=== PATIENT | male | born 1995 | race Caucasian/White ===

== ENCOUNTER 2022-03-25 11:08 | Emergency (ER) | payer SELFPAY ==
[2022-03-25 11:09] VITALS: BP 156/94; PULSE 108; RESP 16; TEMP 37.2; O2SAT 98; BMI 28.0
--- NOTE | 2022-03-25 11:43 | RAD_ITS ---
STUDY: X-RAY CHEST REASON FOR EXAM: Male, 26 years old. Aspirated FB TECHNIQUE: PA and lateral views of the chest. COMPARISON: None. FINDINGS: The lungs are clear and expanded. There is no demonstrated pleural abnormality. Normal size heart. Normal mediastinum and mansi. Normal visualized pulmonary arteries. Normal visualized aortic arch and descending thoracic aorta. Normal visualized thoracic spine. Normal visualized ribs, clavicles, and shoulders. There is no demonstrated abnormality of the visualized soft tissue structures of the upper abdomen. RAD/Chest PA and Lateral IMPRESSION: Normal x-ray examination of the chest. Electronically Signed: Ole Escudero MD at 12:47 EDT ,
--- NOTE | 2022-03-25 11:43 | EX.ED.DYSGE1 ---
HPI History of Present Illness Chief Complaint: Foreign Body Informant: patient Onset/Context/Timing Onset: Hours (1) Context: Sudden Onset Timing: Continuous Quality: Discomfort Location: Left parasternal chest Current Severity: Moderate Maximum Severity: Moderate Worsened by: Breathing Relieved by: Nothing Associated Symptoms Associated Symptoms: None Narrative Narrative: Patient had a handful of blueberries that he was about to swallow when he accidentally aspirated 1. No coughing or choking, he feels like it went right down into his lung, he has discomfort in his left chest when he takes a breath that started along with this. No dyspnea. No vomiting. PFSH PFSH Medical History no medical history no medical history Home Medications hydrocodone-acetaminophen 5-325mg 5mg-325mg 1 - 2 tab PO Q4H PRN PRN Pain ##30 12/10/13 [Rx Last Taken Unknown] Allergy/AdvReac Type Severity Reaction Status Date / Time No Known Allergies Allergy Verified 03/25/22 11:10 Surgical History no surgical history Social History Smoking Status: Never smoker ROS ROS ED Constitutional Constitutional ED: Denies chills or fever(s) Eyes Eyes: Denies change in vision or diplopia ENT ENT ED: Denies rhinorrhea or sore throat Cardiovascular Cardiovascular: Reports other Details: Chest discomfort with inspiration see HPI ; Denies palpitations Respiratory/Chest Respiratory/Chest: Denies cough or dyspnea Gastrointestinal Gastrointestinal: Denies abdominal pain, diarrhea, nausea or vomiting Genitourinary Genitourinary ED: Denies dysuria or hematuria Musculoskeletal Musculoskeletal: Denies back pain or neck pain Integumentary Denies abscess or rash Neurologic Neurologic: Denies headache(s), paresthesias or weakness Psychiatric Psychiatric: Denies anxiety or suicidal thoughts EXAM Physical Exam Const Vital Signs: 03/25/22 11:09 Temperature 98.9 F Temperature Source Temporal Pulse Rate 108 H Respiratory Rate 16 Blood Pressure 156/94 H Blood Pressure Mean 114 Pulse Ox 98 Oxygen Delivery Method Room Air Positive well nourished and well developed General Appearance ED: well developed and NAD HEENT Reports moist mucous membranes normocephalic and atraumatic Eyes PERRL and EOMs intact bilaterally Neck full ROM and supple Resp normal respiratory effort and clear to auscultation bilaterally Cardio regular rate, regular rhythm and no murmurs GI non-tender and non-distended Auscultation: normoactive bowel sounds Palpation: soft Back/Spine no CVA tenderness General Back: other FROM Extremity normal to inspection General Extremety ED: Negative for edema, pulses abnormal or tenderness General Extremity: Negative for edema or pulses abnormal Neuro oriented x3, CN's II-XII intact bilaterally and no sensory deficits noted Sensorium / Orientation: awake and alert Motor Exam: strength 5/5 throughout Skin no rashes or lesions noted and no wounds MDM MDM MDM Narrative Medical decision making narrative: X-ray to my interpretation is normal, 2 views. This does not rule out the possibility of an aspirated foreign body into one of the smaller bronchials. I discussed with Dr. Pyle, he agrees that bronchoscopy is reasonable in this scenario especially given the fact that the foreign body is round and could ball-valve and cause an infection although this is a lower risk in someone who is young and healthy like this patient. I discussed at length with the patient regarding how the x-ray being negative does not rule out the possibility of a foreign body in his lung/bronchial. However, when I reevaluated him during this conversation, he states that the symptoms have resolved and he feels like it was probably just in his esophagus and he does not want anything done. Dr. Pyle spoke with him, and the patient is refusing bronchoscopy and refusing an IV. He wants to leave. He was given appropriate discharge instructions and reasons to return. Radiography Chest X-Ray - ED: 2 View, Read by ED Physician, Normal, Heart, Lungs, Mediastinum and No Acute Disease Diagnostic Testing: Clinical Impression(s) from Imaging Studies Chest X-Ray 03/25/22 11:43 IMPRESSION: Normal x-ray examination of the chest. Electronically Signed: Ole Escudero MD at 12:47 EDT , Discharge Plan Triage Chief Complaint: Foreign Body ED Provider: Reagan Tirado Dx/Rx/DC Orders Clinical Impression: Aspiration of foreign body Instructions: Dysphagia Aspiration Prescriptions: No Action hydrocodone-acetaminophen 1 TABLET tablet 1 - 2 tab PO Q4H PRN PRN (Reason: Pain) Qty: 30 0RF Primary Care Provider: Care Physician,No Primary Referrals: Bobby Pyle, DO [STAFF PHYSICIAN] - As Needed (or may return to ER if you have trouble breathing) [facility] Doctor,Out of [NON-STAFF] - Disposition Disposition: Home, Self Care
[2022-03-25 13:40] VITALS: BP 124/66; PULSE 72; RESP 15; O2SAT 98
== END 2022-03-25 13:40 | disposition home or self-care (01) ==
PROVIDERS: Emergency Provider Emergency Medicine; Visit Provider Emergency Medicine
DX: R13.19 Other dysphagia (principal)
CPT/HCPCS: 71046; 99282

== ENCOUNTER 2023-09-13 13:36 | Emergency (ER) | payer MEDICAID, SELFPAY ==
[2023-09-13 13:38] VITALS: BP 142/91; PULSE 118; RESP 20; TEMP 36.8; O2SAT 100; BMI 29.2
--- NOTE | 2023-09-13 13:49 | EDS_ITS ---
HPI History of Present Illness Chief Complaint: Wound Informant: patient and parent Narrative Narrative: Increasing bump near his left scrotum over last 4 days. He has been trying to drain it however increasing pain. He has had small abscess in other areas spont aneously draining. He is not having this area. Yesterday noting some weakness and chills myalgias. He is mild cough. Denies sick contacts. Denies any past medical history. No diabetes. Prior similar symptoms: Yes PFSH PFSH Home Medications hydrocodone-acetaminophen 5-325mg 5mg-325mg 1 - 2 tab PO Q4H PRN PRN Pain ##30 12/10/13 [Rx Last Taken Unknown] cephalexin 500 mg capsule 500 mg PO Q6 #40 CAPSULES 09/13/23 [Rx Last Taken Unknown] hydrocodone-acetaminophen 5-325mg 5mg-325mg 1 tab PO Q6H PRN PRN Pain 3 days #10 TABLETS 09/13/23 [Rx Last Taken Unknown] ibuprofen 600 mg tablet 600 mg PO Q6H PRN PRN pain #20 TABLETS 09/13/23 [Rx Last Taken Unknown] Allergy/AdvReac Type Severity Reaction Status Date / Time No Known Allergies Allergy Verified 09/13/23 13:37 Social History Smoking Status: Never smoker ROS ROS ED Constitutional Constitutional ED: Reports chills; Denies fever(s) Eyes Eyes: Denies change in vision ENT ENT ED: Denies dysphagia or sore throat Cardiovascular Cardiovascular: Denies chest pain, leg edema, palpitations or racing heartbeat Respiratory/Chest Respiratory/Chest: Reports cough; Denies dyspnea or dyspnea on exertion Gastrointestinal Gastrointestinal: Denies abdominal pain, diarrhea, nausea or vomiting Genitourinary Genitourinary ED: Denies dysuria, hematuria or urinary frequency Musculoskeletal Musculoskeletal: Reports myalgias; Denies back pain, extremity pain or neck pain Integumentary Reports abscess; Denies rash or wounds Neurologic Neurologic: Denies headache(s), paresthesias or weakness EXAM Physical Exam Const Vital Signs: 09/13/23 13:38 Temperature 98.2 F Temperature Source Temporal Pulse Rate 118 H Respiratory Rate 20 H Blood Pressure 142/91 H Blood Pressure Mean 108 Pulse Ox 100 Oxygen Delivery Method Room Air Positive well nourished and well developed General Appearance ED: well developed and NAD HEENT Reports moist mucous membranes normocephalic and atraumatic Eyes PERRL, EOMs intact bilaterally and conjunctivae normal General Eye ED: Yes normal appearance of both eyes Neck no lymphadenopathy and supple General: Negative for tenderness Chest Wall Chest: Negative for tenderness Resp normal respiratory effort and normal air movement Effort and Inspection: symmetric chest movement; Negative for respiratory distress Cardio regular rhythm and no murmurs Rate: tachycardic Peripheral Pulses: pulses 2+ throughout GI normal to inspection, nondistended, normoactive bowel sounds and non-tender Palpation: Negative for guarding or rebound tenderness present Narrative: Left groin area 4 x 2 cm area of fluctuance at the base of the left scrotum s light encroachment towards the scrotum. There was small open comedone with no active draining no surrounding erythema. Tender to palpation. Back/Spine no CVA tenderness and no thoracic nor lumbar tenderness Extremity normal to inspection General Extremety ED: Negative for edema or tenderness General Extremity: Negative for edema Neuro oriented x3 and no sensory deficits noted Sensorium / Orientation: awake and alert Skin no rashes or lesions noted and no wounds MDM MDM MDM Narrative Medical decision making narrative: Interventions / MDM: Differential diagnosis: Abscess, viral syndrome Diagnosis considered but do not suspect: No clinical sepsis My EKG interpretation: N/A Imaging independently reviewed and interpreted by myself: N/A External documents reviewed: N/A Test considered but not ordered:N/A ED course: Afebrile in the ED tachycardia likely from discomfort. He is nontoxic. With chills myalgias starting yesterday we will send for COVID flu and RSV. Will prep for I&D bedside. Procedure note: Verbal consent. Left groin area prepped in normal sterile fashion Betadine prep. A total of 13 cc 1% lidocaine used for local analgesia. Additional Betadine prep was used. 11 blade with a cruciate incision was made, loculations broken with a hemostat, there is no exudative return. This was flushed with normal saline. 4 x 4 dressing placed. Patient tolerated procedure well. I&D with no exudative return. He started on Keflex, ibuprofen and [place] help with symptoms. COVID flu and RSV PCR is negative. Likely viral syndrome from cough symptoms that he reported yesterday. He is nontoxic. He is discharged with outpatient follow-up given with return precautions. All questions were answered. Re-evaluation: stable Disposition discussed with patient/family/significant other: Patient and family Case discussed with consulting clinician: N/A This note was generated with [employer] dictation software. It may contain incorrect words, spelling, and punctuation that were not noted in checking the note before signing. Discharge Plan Triage Chief Complaint: Wound ED Provider: Rush Delarosa Dx/Rx/DC Orders Clinical Impression: Abscess of groin, left, Acute viral syndrome Instructions: ED Abscess Incision And Drainage Prescriptions: New hydrocodone-acetaminophen [hydrocodone-acetaminophen] 5-325 mg tablet 1 tab PO Q6H PRN PRN (Reason: Pain) 3 Days Qty: 10 0RF cephalexin [cephalexin] 500 mg capsule 500 mg PO Q6 Qty: 40 0RF ibuprofen 600 mg tablet 600 mg PO Q6H PRN PRN (Reason: pain) Qty: 20 0RF No Action hydrocodone-acetaminophen 1 TABLET tablet 1 - 2 tab PO Q4H PRN PRN (Reason: Pain) Qty: 30 0RF Primary Care Provider: Care Physician,No Primary Referrals: Azael Cullen MD [Med Staff - Active Staff] - 1-2 Weeks Care Physician,No Primary [Primary Care Provider] - Activity Restrictions/Additional Instructions: COVID and influenza negative. Your abscess was incised and drained, take and finish antibiotics as prescribed. Follow-up as an outpatient. If symptoms worsens return to the ED for reevaluation. Disposition Disposition: Home, Self Care
[2023-09-13] MEDS: HYDROcodone Bitartrate/Apap 5/325 Tablet PO (14:32)
[2023-09-13] MEDS: Lidocaine 1% (20 ml mdv) 20 ML Vial INFILT (14:33)
[2023-09-13] MEDS: Cephalexin 250 MG Capsule 500 MG PO (14:33)
[2023-09-13] MEDS: Ibuprofen 600 MG Tablet PO (14:33)
--- OUTSIDE RECORDS SUMMARY | 2023-09-13 14:34 | XMS RPT_ITS | CCD ---
Author Name Unknown Address [address] [place], [place] [id number] Organization [facility] Problems Problem Classification Problem Date Documented Da te Episodic/Chronic Other infections; including parasitic (1 source) Personal history of other infectious and parasitic diseases; Translations: [Personal history of other infectious and parasitic diseases] Onset: 11-01-2022 Episodic Results Test Name Value Interpretation Reference Range Facil ity Encounters Encounter Date Encounter Type Care Provider Facility Start: 11-01-2022 ambulatory [facility] Start: 11-01-2022 Encounter for genera l adult medical examination without abnormal findings [facility] Start: 09-16-2018 End: 09-17-2018 Patient encounter procedure [facility] Payers Date Payer Category Payer Unknown [id number] Medicaid [id number] Summary Purpose Family History No Family History Records FoundNo Family History Records Found Advance Directives No Advanced Directives Records FoundNo Advanced Directives Records Found Additional Source Comments (unrecognized sect ion and content) No Status Records FoundNo Status Records Found INFORMATION SOURCE (unrecogn ized section and content) DATE CREATED AUTHOR AUTHOR'S ORGANIZ ATION 11/06/2022 [facility] FOR RECORDS PERTAINING TO PATIENTS WHO ARE OR HAVE BEEN ENROLLED IN A CHEMICAL DEPENDENCY/SUBSTANCEABUSE PROGRAM, SOME INFORMATION MAY BE OMITTED. This clinical summary was aggregated from multiple sources. Caution should be exercised in using it in the provision of clinical care. This summary normalizes information from multiple sources, and as a consequence, information in this document may materially change the coding, format and clinical context of patient data. In addition, data may be omitted in some cases. CLINICAL DECISIONS SHOULD BE BASED ON THE PRIMARY CLINICAL RECORDS. [employer] provides no warranty or guarantee of the accuracy or completeness of information in this document.
== END 2023-09-13 15:06 | disposition home or self-care (01) ==
PROVIDERS: Emergency Provider Emergency Medicine; Visit Provider Emergency Medicine
DX: L02.214 Cutaneous abscess of groin (principal); B34.9 Viral infection, unspecified
CPT/HCPCS: 87631; 99283

== ENCOUNTER 2023-09-22 00:13 | Emergency (ER) | payer MEDICAID, SELFPAY ==
[2023-09-22 00:14] VITALS: BP 140/96; PULSE 75; RESP 16; TEMP 36.2; O2SAT 98; BMI 29.4
[2023-09-22] MEDS: Ketorolac 30 MG/ML Syringe IV (00:41)
[2023-09-22] MEDS: Ondansetron 4 MG/2 ML Vial IV ×2 (00:41→02:30)
[2023-09-22] MEDS: 0.9% Normal Saline (1000mL) 1,000 ML 999 ML IV (00:42)
[2023-09-22 00:55] LABS: Absolute Lymphocyte Count 1.64 X10^3/uL (0.83-4.51); Absolute Neutrophil Count 9.6 X10^3/uL (2.0-7.7); Basophil# 0.06 X10^3/uL; Basophil% 0.5 % (0-1); Eosinophil# 0.22 X10^3/uL; Eosinophils% 1.7 % (0-5); Hematocrit 51.5 % (40-54); Hemoglobin 17.4 g/dL (13.0-16.5); Lymphocyte # 1.64 X10^3/ul (0.83-4.51); Lymphocyte % 12.9 % (19-41); Mean Corp Hgb Conc 33.8 g/dL (32-36); Mean Corpuscular Hgb 29.6 pg (27.0-32.0); Mean Corpuscular Volume 87.6 fL (80-94); Mean Platelet Vol. 9.7 fl (6.2-12.0); Monocyte# 1.06 X10^3/uL; Monocyte% 8.4 % (0-10); NRBC Flagged by Analyzer 0 % (0-5); Neutrophil # 9.63 X10^3/uL (2.7-7.7); Neutrophil % 75.9 % (47-70); Platelet Count 275 K/mm3 (150-450); RBC Distribution Width CV 12.6 % (11.6-14.6); RBC Distribution Width SD 40.2 fl (35.1-43.9); Red Blood Count 5.88 M/mm3 (4.6-6.2); White Blood Count 12.7 K/mm3 (4.4-11.0)
--- OUTSIDE RECORDS SUMMARY | 2023-09-22 01:03 | XMS RPT_ITS | CCD ---
Author Name Unknown Address [address] [place], [place] [id number] Organization [facility] Problems Problem Classification Problem Date Documented Da te Episodic/Chronic Other infections; including parasitic (1 source) Personal history of other infectious and parasitic diseases; Translations: [Personal history of other infectious and parasitic diseases] Onset: 11-01-2022 Episodic Results Test Name Value Interpretation Reference Range Facil ity Encounters Encounter Date Encounter Type Care Provider Facility Start: 11-01-2022 ambulatory [facility] Start: 11-01-2022 Encounter for genera l adult medical examination without abnormal findings [facility] Start: 09-16-2018 End: 09-17-2018 Patient encounter procedure [facility] Payers Date Payer Category Payer Unknown [id number] Medicaid [id number] Summary Purpose Family History No Family History Records FoundNo Family History Records Found Advance Directives No Advanced Directives Records FoundNo Advanced Directives Records Found Additional Source Comments (unrecognized sect ion and content) No Status Records FoundNo Status Records Found INFORMATION SOURCE (unrecogn ized section and content) DATE CREATED AUTHOR AUTHOR'S ORGANIZ ATION 11/06/2022 [facility] FOR RECORDS PERTAINING TO PATIENTS WHO ARE [...] BE BASED ON THE PRIMARY CLINICAL RECORDS. [employer] provides no warranty or guarantee of the accuracy or completeness of information in this document.
[2023-09-22 01:18] LABS: AST(SGOT) 39 U/L (15-37); Alanine Aminotransfer ALT/SGPT 66 U/L (16-61); Alkaline Phosphatase 82 U/L (45-117); Anion Gap 3 (5-15); BUN 18 mg/dL (7-18); BUN/Creat Ratio 15.3 RATIO (10-20); Bilirubin, Direct 0.09 mg/dL (0.00-0.30); Calcium,Total 9.1 mg/dL (8.5-10.1); Chloride 102 mmol/L (98-107); Creatinine, Serum 1.18 mg/dL (0.70-1.30); EST Glomerular Filtration Rate 77 mL/min (>60); Est Glom Filt Rate - Afr Amer 93 mL/min (>60); Estimated Creatinine Clearance 92.37 ml/min; Globulin 4.1 g/dL (2.2-4.2); Glucose 92 mg/dL (74-106); Lipase 25 U/L (13-75); Potassium 4.8 mmol/L (3.5-5.1); Protein, Total 7.1 g/dL (6.4-8.2); Sodium Level 135 mmol/L (136-145)
--- NOTE | 2023-09-22 02:18 | EX.ED.DYSGE1 ---
HPI History of Present Illness Chief Complaint: Abd Pain Informant: patient and parent Narrative Narrative: Patient is a 27-year-old male with past history of methamphetamine abuse. He was seen on September 13 secondary to an inguinal abscess and had it incised and drained and placed on Keflex. Patient states he has been doing well but that today began with generalized abdominal discomfort bouts of loose stool/diarrhea and nausea and vomiting. He denies any known sick contacts but with the recent abscess and now abdominal symptoms he presents for evaluation [facility] Medical History (Updated 09/22/23 @ 06:[address] Андрей Hopson DO) Drug abuse Hepatitis C Home Medications hydrocodone-acetaminophen 5-325mg 5mg-325mg 1 - 2 tab PO Q4H PRN PRN Pain ##30 12/10/13 [Rx Last Taken Unknown] cephalexin 500 mg capsule 500 mg PO Q6 #40 CAPSULES 09/13/23 [Rx Last Taken Unknown] ibuprofen 600 mg tablet 600 mg PO Q6H PRN PRN pain #20 TABLETS 09/13/23 [Rx Last Taken Unknown] dicyclomine 20 mg tablet 20 mg PO 4X/DAY PRN PRN Abdominal pain/spasm #28 tabs 09/22/23 [Rx Last Taken Unknown] ketorolac 10 mg tablet 10 mg PO 4X/DAY PRN PRN pain 5 days #20 tabs 09/22/23 [Rx Last Taken Unknown] ondansetron 4 mg disintegrating tablet 4 mg PO TID PRN nausea and vomiting #21 tabs 09/22/23 [Rx Last Taken Unknown] Allergy/AdvReac Type Severity Reaction Status Date / Time No Known Allergies Allergy Verified 09/22/23 00:13 Social History Smoking Status: Current every day smoker tobacco type: cigarettes ROS ROS ED Constitutional Constitutional ED: Denies chills or fever(s) ENT ENT ED: Denies sore throat Cardiovascular Cardiovascular: Denies chest pain Respiratory/Chest Respiratory/Chest: Denies cough or dyspnea Gastrointestinal Gastrointestinal: Reports abdominal pain, diarrhea, nausea and vomiting Genitourinary Genitourinary ED: Denies dysuria Musculoskeletal Musculoskeletal: Reports myalgias Integumentary Denies rash Neurologic Neurologic: Denies headache(s) Hematologic/Lymphatic Hematologic/Lymphatic: Denies easy bleeding or easy bruising EXAM Physical Exam Const Vital Signs: 09/22/23 00:14 09/22/23 02:34 Temperature 97.1 F L Temperature Source Temporal Pulse Rate 75 67 Respiratory Rate 16 17 Blood Pressure 140/96 H Blood Pressure Mean 110 Pulse Ox 98 99 Positive well nourished and well developed General Appearance ED: well developed HEENT HEENT Narrative: Mucous membranes are slightly dry and tacky No signs of infection noted in the posterior pharynx Eyes PERRL and EOMs intact bilaterally General Eye ED: Negative for scleral icterus Neck supple Neck Narrative: No nuchal rigidity or meningeal signs Resp normal respiratory effort and clear to auscultation bilaterally Cardio regular rate and regular rhythm Rate: other Other Details: Heart is regular rate and rhythm without murmurs rubs or gallops GI non-distended GI Narrative: Abdomen is soft and nondistended with hyperactive bowel sounds. There is mild diffuse pain with palpation without voluntary guarding or rigidity. No pulsatile mass or fluid wave Auscultation: hyperactive bowel sounds Palpation: soft Back/Spine no CVA tenderness Extremity normal to inspection Neuro oriented x3, CN's II-XII intact bilaterally and no sensory deficits noted Sensorium / Orientation: alert Motor Exam: strength 5/5 throughout Psych mental status grossly normal Skin no rashes or lesions noted General Skin Exam: Negative for jaundice MDM MDM MDM Narrative Medical decision making narrative: Patient presented to the ER mildly hypertensive but otherwise with stable vitals. He reported generalized abdominal discomfort with bouts of nausea vomiting and loose stool/diarrhea. Differential diagnosis is for viral gastroenteritis versus biliary colic versus pancreatitis versus electrolyte abnormality or acute kidney injury. Secondary to this basic blood work was obtained. Patient's white count is slightly elevated at 12.7 but otherwise her no clinically significant derangements. Patient was given Toradol IV fluids and Zofran and on reevaluation reported feeling better and his abdomen remains soft and nonsurgical. Therefore at this time I feel that white count is most likely stress response secondary to his symptoms and viral gastroenteritis and do not feel there is need for a CT scan. Patient replaced on Bentyl Zofran and Toradol for home and he agrees to return for repeat evaluation with potential CT scan if his symptoms do not spontaneously improve and the standard timeframe of 3 to 7 days or he has any further concerns. However at this time with his history and exam and slightly elevated white count I feel this is viral gastroenteritis and he is safe for discharge as he does not have acute kidney injury signs of septicemia or severe electro abnormality and symptoms have improved with standard treatment History & Record Review Discussion w/independent historian: Patient and Family Lab Data Attestation: I reviewed the patient's lab results. Labs: Laboratory Results - last 24 hr 09/22/23 00:22 WBC 12.7 H RBC 5.88 Hgb 17.4 H Hct 51.5 MCV 87.6 MCH 29.6 MCHC 33.8 RDW Std Deviation 40.2 RDW Coeff of Oj 12.6 Plt Count 275 MPV 9.7 Immature Gran % (Auto) 0.600 Neut % (Auto) 75.9 H Lymph % (Auto) 12.9 L [place] % (Auto) 8.4 Eos % (Auto) 1.7 Baso % (Auto) 0.5 Absolute Neuts (auto) 9.6 H Absolute Lymphs (auto) 1.64 Nucleated RBC % 0 Sodium 135 L Potassium 4.8 Chloride 102 Carbon Dioxide 30.0 Anion Gap 3 L BUN 18 Creatinine 1.18 Estim Creat Clear Calc 92.37 Est GFR (MDRD) Af Amer 93 Est GFR (MDRD) Non-Af 77 BUN/Creatinine Ratio 15.3 Glucose 92 Calcium 9.1 Total Bilirubin 0.80 Direct Bilirubin 0.09 AST 39 H ALT 66 H Alkaline Phosphatase 82 Total Protein 7.1 Albumin 3.0 L Globulin 4.1 Lipase 25 Discharge Plan Triage Chief Complaint: Abd Pain ED Provider: Андрей Hopson Dx/Rx/DC Orders Clinical Impression: Nausea vomiting and diarrhea, History of methamphetamine abuse Instructions: ED Gastroenteritis, Viral (Adult) Prescriptions: New dicyclomine 20 mg tablet 20 mg PO 4X/DAY PRN PRN (Reason: Abdominal pain/spasm) Qty: 28 0RF ondansetron 4 mg tablet,disintegrating 4 mg PO TID PRN (Reason: nausea and vomiting) Qty: 21 0RF ketorolac 10 mg tablet 10 mg PO 4X/DAY PRN PRN (Reason: pain) 5 Days Qty: 20 0RF No Action hydrocodone-acetaminophen 1 TABLET tablet 1 - 2 tab PO Q4H PRN PRN (Reason: Pain) Qty: 30 0RF cephalexin [cephalexin] 500 mg capsule 500 mg PO Q6 Qty: 40 0RF ibuprofen 600 mg tablet 600 mg PO Q6H PRN PRN (Reason: pain) Qty: 20 0RF Primary Care Provider: Care Physician,No Primary Referrals: Paco Paige MD [Med Staff - Active Staff] - Care Physician,No Primary [Primary Care Provider] - Activity Restrictions/Additional Instructions: Your history and exam is consistent with a viral stomach infection. Last anywhere from 1 to 7 days with the average being 3 days. Keep yourself well-hydrated and use the prescribed medication as directed to help control symptoms. If you have any further concerns or worsening symptoms please return for repeat evaluation Disposition Disposition: Home, Self Care Discharge Date/Time: 09/22/23 02:34
[2023-09-22] MEDS: Dicyclomine 10 MG Capsule 20 MG PO (02:30)
[2023-09-22 02:34] VITALS: PULSE 67; RESP 17; O2SAT 99
== END 2023-09-22 02:34 | disposition home or self-care (01) ==
PROVIDERS: Emergency Provider Emergency Medicine; Visit Provider Emergency Medicine
DX: A08.4 Viral intestinal infection, unspecified (principal); F15.10 Other stimulant abuse, uncomplicated; F17.210 Nicotine dependence, cigarettes, uncomplicated
CPT/HCPCS: 80048; 80076; 83690; 85025; 96361; 96374; 96375; 96376; 99283; J7030; A4216; J2405

== ENCOUNTER 2023-11-28 09:11 | Emergency (ER) | payer MEDICAID, SELFPAY ==
[2023-11-28 09:12] VITALS: BP 101/82; PULSE 114; RESP 16; TEMP 35.8; O2SAT 100; BMI 28.5
--- NOTE | 2023-11-28 09:15 | EX.ED.DYSGE1 ---
HPI History of Present Illness Chief Complaint: Abscess Informant: patient Onset/Context/Timing Onset: Days (2-3) Context: Gradual Onset Timing: Continuous Quality: Burning, sharp Location: Tailbone Worsened by: Nothing Relieved by: Nothing Narrative Narrative: Patient presents with an abscess to his tailbone that has been getting worse over the past 2 to 3 days. Patient states that pain has gradually gotten worse. Patient describes it as burning but sharp at times. Patient states it is mainly over the midline of his tailbone. Patient states nothing makes it worse and nothing makes it better. Patient denies any fevers or chills. Patient denies any nausea or vomiting. [facility] Medical History Drug abuse Hepatitis C Home Medications hydrocodone-acetaminophen 5-325mg 5mg-325mg 1 - 2 tab PO Q4H PRN PRN Pain ##30 12/10/13 [Rx Last Taken Unknown] cephalexin 500 mg capsule 500 mg PO Q6 #40 CAPSULES 09/13/23 [Rx Last Taken Unknown] ibuprofen 600 mg tablet 600 mg PO Q6H PRN PRN pain #20 TABLETS 09/13/23 [Rx Last Taken Unknown] dicyclomine 20 mg tablet 20 mg PO 4X/DAY PRN PRN Abdominal pain/spasm #28 tabs 09/22/23 [Rx Last Taken Unknown] ketorolac 10 mg tablet 10 mg PO 4X/DAY PRN PRN pain 5 days #20 tabs 09/22/23 [Rx Last Taken Unknown] ondansetron 4 mg disintegrating tablet 4 mg PO TID PRN nausea and vomiting #21 tabs 09/22/23 [Rx Last Taken Unknown] doxycycline monohydrate 100 mg capsule 100 mg PO BID #20 CAPSULES 11/28/23 [Rx Last Taken Unknown] Allergy/AdvReac Type Severity Reaction Status Date / Time No Known Allergies Allergy Verified 11/28/23 09:14 Surgical History no surgical history no surgical history Social History Smoking Status: Current every day smoker tobacco type: cigarettes ROS ROS ED Constitutional Constitutional ED: Denies chills or fever(s) Eyes Eyes: Denies blurry vision or change in vision ENT ENT ED: Denies rhinorrhea or sore throat Cardiovascular Cardiovascular: Denies chest pain or palpitations Respiratory/Chest Respiratory/Chest: Denies cough or dyspnea Gastrointestinal Gastrointestinal: Denies nausea or vomiting Genitourinary Genitourinary ED: Denies dysuria or hematuria Musculoskeletal Musculoskeletal: Reports back pain; Denies neck pain Integumentary Reports abscess; Denies rash Neurologic Neurologic: Reports headache(s); Denies weakness Allergic/Immunologic Allergic/Immunologic ED: Denies mouth swelling or urticaria EXAM Physical Exam Const Vital Signs: 11/28/23 09:12 Temperature 96.4 F L Temperature Source Temporal Pulse Rate 114 H Respiratory Rate 16 Blood Pressure 101/82 H Blood Pressure Mean 88 Pulse Ox 100 Oxygen Delivery Method Room Air Positive well nourished and well developed General Appearance ED: well developed and NAD HEENT Reports moist mucous membranes Neck supple and no JVD Neuro oriented x3, CN's II-XII intact bilaterally and no sensory deficits noted Sensorium / Orientation: alert Motor Exam: strength 5/5 throughout Psych mental status grossly normal MDM MDM MDM Narrative Medical decision making narrative: Patient was advised of the need for incision and drainage. Patient was explained the risks and benefits of the procedure. Patient was given the opportunity ask questions. Patient had no further questions. Patient is agreeable to incision and drainage. Informed consent was obtained. The area was cleaned with chlorhexidine prep. The area was anesthetized with 1% plain lidocaine locally. A small cruciate incision was made using an 11 blade scalpel. A moderate amount of purulent drainage was expressed. The wound was left open. Bacitracin dressing was applied. Patient tolerated the procedure well. Patient was given a dose of doxycycline here and a prescription for doxycycline. Patient was instructed to use warm compresses. Patient was instructed to follow-up with her primary care physician in 5 to 7 days. Patient understood and was agreeable with the plan. All questions were answered. Discharge Plan Triage Chief Complaint: Abscess ED Provider: Caio Rodriguez Dx/Rx/DC Orders Clinical Impression: Abscess Instructions: ED Abscess Incision And Drainage Prescriptions: New doxycycline monohydrate 100 mg capsule 100 mg PO BID Qty: 20 0RF No Action hydrocodone-acetaminophen 1 TABLET tablet 1 - 2 tab PO Q4H PRN PRN (Reason: Pain) Qty: 30 0RF dicyclomine 20 mg tablet 20 mg PO 4X/DAY PRN PRN (Reason: Abdominal pain/spasm) Qty: 28 0RF ondansetron 4 mg tablet,disintegrating 4 mg PO TID PRN (Reason: nausea and vomiting) Qty: 21 0RF ketorolac 10 mg tablet 10 mg PO 4X/DAY PRN PRN (Reason: pain) 5 Days Qty: 20 0RF cephalexin [cephalexin] 500 mg capsule 500 mg PO Q6 Qty: 40 0RF ibuprofen 600 mg tablet 600 mg PO Q6H PRN PRN (Reason: pain) Qty: 20 0RF Primary Care Provider: Care Physician,No Primary Referrals: Paco Paige MD [Med Staff - Active Staff] - 5-7 Days Care Physician,No Primary [Primary Care Provider] - Disposition Disposition: Home, Self Care
--- OUTSIDE RECORDS SUMMARY | 2023-11-28 09:54 | XMS RPT_ITS | CCD ---
Author Name Unknown Address [address] [place], [place] [id number] Organization [facility] Problems Problem Classification Problem Date Documented Da te Episodic/Chronic Other infections; including parasitic (1 source) Personal history of other infectious and parasitic diseases; Translations: [Personal history of other infectious and parasitic diseases] Onset: 11-01-2022 Episodic Results Test Name Value Interpretation Reference Range Facil ity Encounters Encounter Date Encounter Type Care Provider Facility Start: 11-01-2022 ambulatory [facility] Start: 11-01-2022 Encounter for genera l adult medical examination without abnormal findings [facility] Start: 09-16-2018 End: 09-17-2018 Patient encounter procedure [facility] Payers Date Payer Category Payer Unknown [id number] Medicaid [id number] Summary Purpose Family History No Family History Records FoundNo Family History Records Found Advance Directives No Advanced Directives Records FoundNo Advanced Directives Records Found Additional Source Comments (unrecognized sect ion and content) No Status Records FoundNo Status Records Found INFORMATION SOURCE (unrecogn ized section and content) DATE CREATED AUTHOR AUTHOR'S ORGANIZ ATION 11/06/2022 [facility] FOR RECORDS PERTAINING TO PATIENTS WHO [...] BE BASED ON THE PRIMARY CLINICAL RECORDS. [employer] provides no warranty or guarantee of the accuracy or completeness of information in this document.
[2023-11-28] MEDS: Acetaminophen 500 MG Tablet 1000 MG PO (10:09)
[2023-11-28] MEDS: Doxycycline 100 MG CAPSULE PO (10:09)
[2023-11-28] MEDS: Lidocaine 1% (20 ml mdv) 20 ML Vial INFILT (10:30)
[2023-11-28 11:10] VITALS: PULSE 68; RESP 16; TEMP 36.6; O2SAT 98
== END 2023-11-28 11:22 | disposition home or self-care (01) ==
PROVIDERS: Emergency Provider Emergency Medicine; Visit Provider Emergency Medicine
DX: L02.818 Cutaneous abscess of other sites (principal); F17.210 Nicotine dependence, cigarettes, uncomplicated
CPT/HCPCS: 10060; 99283

== ENCOUNTER → 2024-11-15 | Outpatient (CLI) | payer MEDICAID, SELFPAY ==
[2024-11-15 16:25] LABS: Hematocrit 44.8 % (40-54); Mean Corp Hgb Conc 35.7 g/dL (32-36); Mean Corpuscular Hgb 30.7 pg (27.0-32.0); Mean Platelet Vol. 10.1 fl (6.2-12.0); Platelet Count 285 K/mm3 (150-450); RBC Distribution Width CV 11.9 % (11.6-14.6); RBC Distribution Width SD 37.2 fl (35.1-43.9); Red Blood Count 5.21 M/mm3 (4.6-6.2); White Blood Count 7.8 K/mm3 (4.4-11.0)
[2024-11-15 22:41] LABS: ALB/GLOB Ratio 1.6 RATIO (0.9-2.4); AST(SGOT) 34 U/L (<=37); Alanine Aminotransfer ALT/SGPT 48 U/L (<=46); Albumin, Serum 4.4 g/dL (3.5-5.0); Alkaline Phosphatase 75 U/L (40-129); BUN 18 mg/dL (4-19); BUN/Creat Ratio 15.6 RATIO (10-20); Creatinine, Serum 1.16 mg/dL (0.70-1.20); EST Glomerular Filtration Rate 87 (>60); Globulin 2.7 g/dL (2.2-4.2); Glucose 87 mg/dL (70-99); HIV Nonreactive (Nonreactive); Hepatitis B Surface Antibody REAC; Hepatitis B Surface Antigen Nonreactive (Nonreactive); Protein, Total 7.1 g/dL (5.9-8.4); Total Bilirubin 0.38 mg/dL (0.00-1.30)
[2024-11-16 01:40] LABS: Anion Gap 15 (5-15); Calcium,Total 9.8 mg/dL (7.6-11.0); Carbon Dioxide 22.2 mmol/L (21.0-32.0); Chloride 102 mmol/L (98-108); Potassium 4.5 mmol/L (3.3-5.1); Sodium Level 139 mmol/L (133-145)
[2024-11-17 21:07] LABS: HCV Quant. RNA PCR 655000 IU/mL (.); HCV log 10 5.816 (.); Hepatitis A AB, Total Negative (Negative)
== END | disposition home or self-care (01) ==
PROVIDERS: Referring Provider Family Medicine; Visit Provider Family Medicine
DX: B18.2 Chronic viral hepatitis C (principal)
CPT/HCPCS: 36415; 80053; 85027; 86703; 86706; 86708; 87340; 87522

== ENCOUNTER → 2024-11-23 | Outpatient (CLI) | payer MEDICAID, SELFPAY ==
[2024-11-23 17:48] LABS: Prothrombin Time (Protime)PT. 13.6 SECONDS (11.7-14.9)
[2024-11-26 23:07] LABS: Hepatitis C Genotype 3 (.)
== END | disposition home or self-care (01) ==
LOC: LAB 17:17
PROVIDERS: Referring Provider Family Medicine; Visit Provider Family Medicine
DX: B18.2 Chronic viral hepatitis C (principal)
CPT/HCPCS: 85610; 87902

== ENCOUNTER → 2024-11-27 | Outpatient (CLI) | payer MEDICAID, SELFPAY | END | disposition home or self-care (01) | LOC: LAB 08:59 | PROVIDERS: Referring Provider Family Medicine; Visit Provider Family Medicine | DX: B18.2 Chronic viral hepatitis C (principal) | CPT/HCPCS: 36415 ==

== ENCOUNTER → 2025-02-04 | Outpatient (CLI) | payer MEDICAID, SELFPAY ==
[2025-02-07 15:08] LABS: HCV Quant. RNA PCR HCV Not Detected IU/mL (.)
== END | disposition home or self-care (01) ==
LOC: LAB 14:40
PROVIDERS: Referring Provider Family Medicine; Visit Provider Family Medicine
DX: B18.2 Chronic viral hepatitis C (principal)
CPT/HCPCS: 87522